=== PATIENT | male | born 2000 | race African-American/Black ===

== ENCOUNTER 2023-01-05 21:30 | Emergency (ER) | payer OTHER, SELFPAY ==
--- NOTE | ~2023-01-05 | XR_ITS ---
EXAMINATION: XR CHEST CLINICAL INFORMATION: Cough. COMPARISON: None available. TECHNIQUE: 2 views of the chest were obtained. FINDINGS: Normal appearance of the cardiomediastinal silhouette. No focal airspace opacity, pleural effusion or pneumothorax. No acute osseous abnormalities. The visualized upper abdomen is within normal limits. XR/XR chest 2V IMPRESSION: No acute cardiopulmonary findings.
[2023-01-05 21:33] VITALS: BP 124/84; PULSE 84; RESP 16; TEMP 36.8; O2SAT 97; BMI 22.9
[2023-01-05 22:23] LABS: COVID-19 Test Negative (Negative); IDNOW Serial# 6674DD1D
[2023-01-05 22:43] LABS: Influenza A PCR NEGATIVE (Negative); Influenza B PCR NEGATIVE (Negative); Resp Syncy Virus RNA Qual PCR NEGATIVE (Negative); SARS COV2 PCR INHOUSE NEGATIVE (Negative)
--- NOTE | 2023-01-05 23:17 | ED_ITS ---
HPI - Asthma General Chief Complaint: Upper Respiratory Symptoms Stated Complaint: Sob/asthma Time Seen by Provider: 01/05/23 23:11 Source: patient Mode of arrival: ambulatory Limitations: no limitations History of Present Illness HPI Narrative: Patient comes emergency room complaining of frequent asthma exacerbations. Patient states that he uses his inhaler, seems to help at the time, but shortly after, he has exacerbations again. Patient denies any fever or chills, no significant coughing. Patient states that the asthma exacerbations started over last 4 days, got worse over last couple of days. Related Data Allergies Allergy/AdvReac Type Severity Reaction Status Date / Time No Known Allergies Allergy Verified 01/05/23 21:40 Review of Systems Review of Systems: Constitutional : No Weight loss, No Fever, No Chills, No Night Sweats, No Fatigue, No Malaise ENT/Mouth : No Hearing loss, No Ear Pain, No Nasal Congestion, No Sinus Pain, No Hoarseness, No sore throat, No Rhinorrhea, No Swallowing Difficulty Eyes: No Eye Pain, No Swelling, No Redness, No Foreign Body, No Discharge, No Vision Changes Cardiovascular : No Chest Pain, No SOB, No Dyspnea on Exertion, No Orthopnea, No Edema, No Palpitations Respiratory : No Cough, No Sputum, complaining of intermittent Wheezing, No Smoke Exposure, No Dyspnea Gastrointestinal : No Nausea, No Vomiting, No Diarrhea, No Constipation, No abdominal Pain, No Hematochezia, No Melena Genitourinary : no irregular bleeding, No Dysuria, No Urinary Frequency, No Hematuria, No Urinary Incontinence, No Urgency, No Flank Pain, No Urinary Flow Changes, No Hesitancy Musculoskeletal : No joint pain, No Myalgias, No Joint Swelling Skin : No Skin Lesions, No rash Neuro : No Weakness, No Numbness, No Paresthesias, No Loss of Consciousness, No Dizziness, No Headache Psych : No Anxiety/Panic, No Depression, No SI/HI/AH/VH, No Social Issues, Heme/Lymph: No Bruising, No Bleeding,No Lymphadenopathy Endocrine : No Polyuria, No Polydipsia, No Temperature Intolerance [facility] Past Medical History Medical History (Updated 01/05/23 @ 23:29 by Marissa Clemente MD) Asthma Physical Exam Vital Signs: Vital Signs: Last Vital Signs Temp 98.3 F 01/05/23 21:33 Pulse 84 01/05/23 21:33 Resp 16 01/05/23 21:33 BP 124/84 01/05/23 21:33 Pulse Ox 97 01/05/23 21:33 O2 Del Method Room Air 01/05/23 21:33 BMI result Body Mass Index 22.9 Const: Other: Appearance: Alert. Oriented X3. No acute distress. Eyes: Pupils equal, round and reactive to light. ENT: Pharynx normal. Neck: Normal inspection. Neck supple. No lymph nodes noted. No crepitus CVS: Normal heart rate and rhythm. Pulses normal. Normal S1 and S2 Respiratory: No respiratory distress. Very mild and occasional wheezing bilaterally good air movement bilaterally Abdomen: Soft and nontender. No rigidity. No distention. Skin: Skin warm and dry. Normal skin color. Normal skin turgor. Extremities: No lower extremity edema. No Lacerations. No Rash Neuro: Oriented X 3. No motor deficit. No sensory deficit. Moving all extremities. No slurred speech. CN 2 through 12 grossly intact Psych: calm, cooperative, normal affect Course Course Course Narrative: -patient will be getting 1 neb treatment and p.o. steroids - Medical Decision Making Medical Decision Making [facility] Narrative: -my interpretation of chest x-ray: No pneumonia, no infiltrates -radiology report of x-ray: No acute cardiopulmonary finding -my interpretation of labs: Patient tested negative for flu, RSV and COVID Differential Diagnosis Differential Diagnoses: The differential diagnosis associated with the presentation includes (Asthma exacerbation, influenza, RSV, COVID) Lab Data [facility] Lab Attestation statement: I reviewed the patient's lab results. Labs: Lab Results 01/05/23 Range/Units 21:56 COVID-19 (JOAN) Negative (Negative) COVID-19 Clin Com See Note Influenza Type A (PCR) NEGATIVE (Negative) Influenza Type B (PCR) NEGATIVE (Negative) RSV RNA Qual (PCR) NEGATIVE (Negative) SARS-CoV-2 RNA (RT-PCR) NEGATIVE (Negative) Independent Interpretation I performed an independent interpretation of an: Plain X-Ray Radiology Impression Discussion of test interpretation with radiology: I have reviewed the radiologist's reading. Radiologist Impression: FINDINGS: Normal appearance of the cardiomediastinal silhouette. No focal airspace opacity, pleural effusion or pneumothorax. No acute osseous abnormalities. The visualized upper abdomen is within normal limits. XR/XR chest 2V IMPRESSION: No acute cardiopulmonary findings. Critical Care Time Critical Care Time Critical Care Time: Yes Total Critical Care Time: 30 Attestation: I have personally provided critical care time. Time includes review of lab data, radiology results, discussion with consultants, and monitoring for potential decompensation. Intervention performed as documented. Discharge Plan Discharge Clinical Impression: Asthma Patient Disposition: Home, Self-Care Instructions: Asthma (ED) Additional Instructions: Please follow-up with your primary care physician tomorrow. If you have any worsening or new symptoms, please return to the emergency room or call 911
[2023-01-05] MEDS: Albuterol Sulfate (0.083%) 2.5 MG/3 ML VIAL.NEB 5 MG INHALE (23:28)
[2023-01-05 23:31] VITALS: PULSE 84; RESP 16; O2SAT 97
[2023-01-06] VITALS: BP 139/79; PULSE 83; RESP 18; O2SAT 94
[2023-01-06] MEDS: predniSONE 20 MG TABLET 60 MG PO (00:11)
== END 2023-01-06 00:07 | disposition home or self-care (01) ==
PROVIDERS: Emergency Provider Emergency Medicine
DX: J45.909 Unspecified asthma, uncomplicated (principal); Z20.822 Contact with and (suspected) exposure to COVID-19; Z20.828 Contact with and (suspected) exposure to other viral communicable diseases
CPT/HCPCS: 0241U; 71046; 87635; 94640; 99284

== ENCOUNTER 2024-12-16 06:21 | Emergency (ER) | payer OTHER, SELFPAY ==
--- NOTE | ~2024-12-16 | XR_ITS ---
CLINICAL HISTORY: sob 2 view chest x-ray Comparison: 01/05/2023 Findings: No consolidation or effusion. Normal size heart. No acute fracture. IMPRESSION: 1. No acute findings. This document has been electronically signed by: Jose Roberto Headley MD on 12/16/2024 07:25:57
[2024-12-16 06:24] VITALS: BP 129/60; PULSE 80; RESP 18; TEMP 37.1; O2SAT 96; BMI 26.8
--- NOTE | 2024-12-16 07:03 | ED_ITS ---
HPI - General Adult General Chief complaint: Dyspnea Stated complaint: SOB Time Seen by Provider: 12/16/24 07:02 Source: patient and family Mode of arrival: ambulatory Limitations: no limitations History of Present Illness ED Provider: KING Mullins HPI narrative: 24-year-old male with medical history of asthma presents to the ED due to shortness of breath and cough that began yesterday. 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 Patient states later in the day began wheezing. Patient states last night he woke up in the middle of the night with shortness of breath, he used rescue inhaler without relief prompting him to seek care in the ED. Patient denies chest pain, headaches, visual changes, nausea, vomiting, abdominal pain MD complaint: SOB Related Data Previous Rx's ?Medication ?Instructions ?Recorded albuterol sulfate 90 mcg/actuation 2 puff inhalation Q 4-6H PRN 01/05/23 aerosol inhaler shortness of breath or wheez ing #8.5 grams prednisone 50 mg tablet 50 mg PO DAILY #4 tabs 01/05 albuterol sulfate 90 mcg/actuation 1 inh inhalation QI D PRN shortness 12/16/24 aerosol inhaler (Ventolin HFA) of breath or wheezing # 6.7 grams Allergies Allergy/AdvReac Type Severity Reaction Status Date / Time peanut Allergy Unknown Verified 12/16/24 06:27 tree nut Allergy Unknown Verified 12/16/24 06:27 Review of Systems 2 Review of Systems: CONST: Negative for fever, body aches and chills. HENT: Negative for neck pain/stiffness, headache, congestion, sore throat, swelling. EYES: Negative for discharge/pain or vision changes. RESP: Negative for hemoptysis. POS dry cough with SOB CV: Negative chest pain, difficulty breathing, palpitations. ABD: Negative pain, nausea, vomiting. : Negative increase frequency, dysuria, blood in urine or stool. MUSC: Negative for muscle aches, edema. SKIN: Negative rash, lesions/sores. NEURO: Negative headache, dizziness, weakness. Yes all other systems are reviewed and are negative PMFSH Past Medical History Attestation statement: The following information was validated with the patient. Source: old records reviewed and nursing notes reviewed Medical History Asthma Social History Social History Alcohol intake: never Advance Directives: No Advance Directives Information Provided: No Physical Exam ED Vital Signs: Vital Signs - 24 hr 12/16/24 06:24 12/16/24 07:22 Temperature 98.8 F Pulse Rate 80 83 Respiratory Rate 18 26 H Blood Pressure 129/60 Pulse Oximetry 96 Oxygen Delivery Method Room Air BMI result Body Mass Index 26.8 GENERAL APPEARANCE: ?AxOx4, generally well-appearing, no acute distress. HEENT: ?NC, AT. MMM. EOMI, clear conjunctiva, oropharynx clear. NECK: ?Supple without lymphadenopathy.? No stiffness or restricted ROM. HEART:? Normal rate and regular rhythm, normal S1/S2, no m/r/g LUNGS:?Mild inspiratory and expiratory wheeze without ronchi or coarse lung sounds ABDOMEN: ?Soft, nontender, nondistended EXTREMITIES: ?Without cyanosis, clubbing or edema. NEUROLOGICAL: ?Grossly nonfocal. Alert and oriented, moving all 4 extremities. Observed to ambulate with normal gait. Skin: ?Warm and dry without any rash. Medications Administered Discontinued Medications Generic Name Dose Route Start Last Admin Trade Name Freq PRN Reason Stop Dose Admin Albuterol Sulfate 5 mg/ 0 mg 12/16/24 07:18 12/16/24 07:20 Albuterol/Ipratropium 3 ml INHALE 12/16/24 07:19 1 each ONCE ONE Administration Magnesium Sulfate 2 gm in 50 mls @ 150 mls/hr 12/16/24 07:19 12/16/24 07:28 Magnesium Sulfate/H2o IV 12/16/24 07:38 150 mls/hr ONCE ONE Administration Methylprednisolone Sodium Succinate 60 mg 12/16/24 07:19 12/16/24 07:28 Methylprednisolone Sod Succ 125 Mg/2 Ml Vial IVPUSH 12/16/24 07:20 60 mg ONCE ONE Administration Medical Decision Making Medical Decision Making MDM Narrative: 24-year-old male with medical history of asthma presents to the ED due to shortness of breath and cough that began yesterday after painting a car with an airbrush system and developing cough and wheezing after the job, with SOB worsening overnight. Has used rescue inhaler at home without relief. VS on initial exam-BP 129/60, pulse rate of 83, respiratory rate of 26, afebrile with oral temp of 98.8?, O2 saturation 96% on room air. On initial exam lungs with mild inspiratory/expiratory wheeze without rhonchi or coarse lung sounds, no increased work of breathing, no pursed lip breathing, no accessory muscle use noted. Plan: Labs, CXR, bronch protocol Labs without leukocytosis/leukopenia, H&H stable, mild transaminitis with an AST of 130, ALT of 51, no electrolyte abnormality. CXR negative for acute cardiopulmonary processes Patient received bronchodilator protocol, 2g magnesium, and 60mg IV solumedrol for SOB and wheezing. After medication and 5 mg Ventolin patient's shortness of breath has improved considerably, symptoms are most likely due to asthma exacerbation after exposure to broncho-irritating substance after inhaling aerosol paint, patient without headache, visual changes, nausea, vomiting, or altered mental status. Patient without pleuritic chest pain, tachycardia, tachypnea has resolved after recieving Ventolin, Wells score of 0- low suspicion for PE. On re-exam mild inspiratory and expiratory wheeze is no longer present, patient is moving air well, lungs clear to auscultation bilaterally. I ambulated the patient around the room with pulse ox on, without hypoxia, patient was saturating between 97-99% with ambulation. Patient feels better to go home for self care. Patient is requesting albuterol inhaler as he used the rest of his inhaler. I counseled patient to follow up with his PCP and on strict return precautions. Patient is in agreement with the plan. Differential Diagnosis Differential Diagnoses: The differential diagnosis associated with the presentation includes Pneumothorax PE Pulmonary edema Asthma exacerbation Admission/Observation Consideration of admission/observation: Escalation of care including admission/observation considered I considered admission, however patient symptoms improved considerably after Ventolin treatment, Solu-Medrol, and magnesium. Patient without hypoxia, no hypoxia on ambulation. Does not need admission at this time Lab Data MDM Lab Attestation statement: I reviewed the patient's lab results. 12/16/24 07:25 12/16/24 07:25 Labs: Lab Results 12/16/24 Range/Units 07:25 WBC 6.7 (4.8-10.8) X10*3/uL RBC 5.23 (4.60-5.80) X10*6/uL Hgb 15.0 (14.0-18.0) g/dl Hct 43.9 (42.0-52.0) % MCV 83.9 (80.0-98.0) fL MCH 28.7 (27.0-33.0) pg MCHC 34.2 (31.0-36.0) g/dl RDW 12.8 (11.0-16.0) % Plt Count 162 (160-400) X10*3/uL MPV 10.8 (9.4-12.4) fL Immature Gran % (Auto) 0.3 (0.0-0.4) % Neut % (Auto) 54.9 (45-73) % Lymph % (Auto) 30.1 (20-40) % Buchanan % (Auto) 6.5 (2-11) % Eos % (Auto) 7.6 H (0-4) % Baso % (Auto) 0.6 (0-2) % Lymph # (Auto) 2.0 (1.2-4.9) X10*3/uL Buchanan # (Auto) 0.4 (0.1-1.2) X10*3/uL Eos # (Auto) 0.5 H (0.0-0.4) X10*3/uL Baso # (Auto) 0.0 (0.0-0.2) X10*3/uL Abs Immat Gran (auto) 0.02 (0.00-0.03) X10*3/uL Absolute Neuts (auto) 3.7 (2.0-8.3) x10*3/uL Absolute Nucleated RBC 0.000 (0.0-0.012) X10*3/uL Nucleated RBC % (auto) 0.0 (0.0-0.2) /100WBC Sodium 142 (135-145) mmol/L Potassium 3.5 (3.3-5.1) mmol/L Chloride 108 (96-108) mmol/L Carbon Dioxide 27 (22-29) mmol/L Anion Gap 11 L (12-20) BUN 13 (9-16) mg/dL Creatinine 1.07 (0.5-1.4) mg/dL Estim Creat Clear Calc 109.9 Estimated GFR > 60 Random Glucose 97 (60-115) mg/dL Calcium 9.3 (8.4-10.2) mg/dL Total Bilirubin 0.7 (0.0-1.0) mg/dL AST 130 H (5-37) U/L ALT 51 H (0-40) U/L Alkaline Phosphatase 62 (39-117) U/L Total Protein 7.2 (6.5-8.0) g/dL Albumin 4.7 (3.5-5.0) g/dL Independent Interpretation I performed an independent interpretation of an: Plain X-Ray Interpretation: I personally interpreted the CXR which was negative for pneumothorax, pulmonary edema, infiltrates, consolidations, I agree with the radiologist's interpretation Radiology Impression Discussion of test interpretation with radiology: I have reviewed the radiologist's reading. Radiologist Impression: CXR Findings: No consolidation or effusion. Normal size heart. No acute fracture. IMPRESSION: 1. No acute findings. This document has been electronically signed by: Jose Roberto Headley MD on 12/16/2024 07:25:57 Dictated By: Jose Roberto Headley MD Signed By: <Electronically signed by Jose Roberto Headley MD in OV> 12/16/24 0727 Independent Historian Clinical information obtained from an independent historian. History obtained from or confirmed by: Spouse (Significant other at bedside corroborating history) External Record Review External record reviewed: Inpatient record, Office record and Outpatient record Chronic Conditions Patient?s care impacted by: Other (Asthma) Discharge Plan Discharge Clinical Impression: Asthma with exacerbation Patient Disposition: Home, Self-Care Additional Instructions: You were evaluated in the ED due to shortness of breath and cough after being exposed and inhaling aerosol paint. You were medicated with 2 g IV magnesium, 16 mg IV methylprednisolone, and 5 mg Ventolin breathing treatment with respiratory therapy with significant resolution of your symptoms. Your physical exam was reassuring as after you received treatment the expiratory wheeze that was heard on lung exam had resolved. You are being prescribed albuterol sulfate inhaler that you can use at home for symptoms. I encourage you to follow up with your primary care doctor to ensure resolution of your symptoms. Please return to the emergency department if you experience fevers over 100.4?, increased coughing, increased shortness of breath, nausea, vomiting, headaches, visual changes, confusion, chest pain, or any new/worsening/concerning symptoms. Prescriptions: New albuterol sulfate [Ventolin HFA] 90 mcg/actuation HFA aerosol inhaler 1 inh inhalation QID PRN (Reason: shortness of breath or wheezing) Qty: 6.7 0RF No Action albuterol sulfate 90 mcg/actuation HFA aerosol inhaler 2 puff inhalation Q4-6H PRN (Reason: shortness of breath or wheezing) Qty: 8.5 0RF prednisone 50 mg tablet 50 mg PO DAILY Qty: 4 0RF Print Language: Cambodian
[2024-12-16] MEDS: Albuterol Sulfate 5 MG, Albuterol/Iprat 2.5/0.5MG 3 ML 3 ML INHALE (07:20)
[2024-12-16 07:22] VITALS: PULSE 83; RESP 26; O2SAT 99
[2024-12-16] MEDS: Magnesium Sulfate/H2O 2 GM/50 ML PIGGYBACK IV (07:28)
[2024-12-16 07:29] LABS: MANUAL DIFF FLAG NO
[2024-12-16 07:32] LABS: Hematocrit 43.9 % (42.0-52.0); Hemoglobin 15.0 g/dl (14.0-18.0); Imm Gran Abs Auto 0.02 X10*3/uL (0.00-0.03); Imm Gran Pct Auto 0.3 % (0.0-0.4); Lymphocytes Absolute Auto 2.0 X10*3/uL (1.2-4.9); Mean Corpuscular HGB Conc 34.2 g/dl (31.0-36.0); Mean Corpuscular Hemoglobin 28.7 pg (27.0-33.0); Mean Corpuscular Volume 83.9 fL (80.0-98.0); NRBC Abs Auto 0.000 X10*3/uL (0.0-0.012); NRBC Pct Auto 0.0 /100WBC (0.0-0.2); Platelet Count 162 X10*3/uL (160-400); Red Blood Count 5.23 X10*6/uL (4.60-5.80); White Blood Count 6.7 X10*3/uL (4.8-10.8)
[2024-12-16 07:50] LABS: Alanine Aminotransferase 51 U/L (0-40); Albumin Level 4.7 g/dL (3.5-5.0); Alkaline Phosphatase 62 U/L (39-117); Anion Gap 11 (12-20); Aspartate Amino Transferase 130 U/L (5-37); Blood Urea Nitrogen 13 mg/dL (9-16); Calcium 9.3 mg/dL (8.4-10.2); Carbon Dioxide 27 mmol/L (22-29); Chloride 108 mmol/L (96-108); Creatinine Clr Calc Pharmacy 109.9; Estimated Glomerular Filt Rate > 60; Potassium 3.5 mmol/L (3.3-5.1); Sodium 142 mmol/L (135-145); Total Protein 7.2 g/dL (6.5-8.0)
[2024-12-16 08:55] VITALS: BP 120/59; PULSE 86; RESP 16; TEMP 36.8; O2SAT 97
== END 2024-12-16 08:56 | disposition home or self-care (01) ==
PROVIDERS: Emergency Provider Emergency Medicine
DX: J45.901 Unspecified asthma with (acute) exacerbation (principal)
CPT/HCPCS: 36415; 71046; 80053; 85025; 94640; 96365; 96375; 99283; 99284; J2919; J3475

== ENCOUNTER → 2024-12-16 06:40 | Outpatient (BNV) | payer OTHER, SELFPAY | PROVIDERS: Emergency Provider Emergency Medicine; Visit Provider Specialist | DX: R06.02 Shortness of breath (principal) | CPT/HCPCS: 71046 ==

== ENCOUNTER 2024-12-16 22:23 | Inpatient (IN) | payer SELFPAY ==
[2024-12-16 22:26] VITALS: BP 144/67; PULSE 113; RESP 16; TEMP 36.7; O2SAT 94; BMI 27.6
[2024-12-16 23:06] LABS: IDNOW Serial# 55D5AD1C
[2024-12-16 23:07] LABS: COVID-19 Test Negative (Negative); IDNOW Serial# 58CA691E; Influenza B2 Negative (Negative)
--- NOTE | 2024-12-16 23:36 | ED.ASTHMA ---
HPI - Asthma General Chief Complaint: Asthma Stated Complaint: here yesterday, was told to return if SOB Time Seen by Provider: 12/16/24 23:36 Source: patient Mode of arrival: ambulatory Limitations: no limitations History of Present Illness ED Provider: RIO MARTÍNEZ PA-C HPI Narrative: 24 year old male with pmhx significant for asthma presents to the ED today for evaluation of shortness of breath, wheezing and chest tightness that began around 1300 today. Patient was seen at our facility early this morning for same which began after painting a car with an airbrush. He was treated with IV medications and discharged home with albuterol nebulizer for asthma exacerbation. He was not discharged on any steroids. He reports feeling well on discharge hand throughout the morning. Upon returning to work he began to feel wheezy with associated chest tightness, palpitations and shortness of breath. Also endorsing cough productive of yellow sputum. He returned home to use his nebulizer without improvement in symptoms. Denies fever, chills, N/V, LE pain/swelling, hemoptysis. Related Data Previous Rx's ?Medication ?Instructions ?Recorded albuterol sulfate 90 mcg/actuation 2 puff inhalation Q4-6H PRN 01/05/23 aerosol inhaler shortness of breath or wheezing #8.5 grams prednisone 50 mg tablet 50 mg PO DAILY #4 tabs 01/05/23 albuterol sulfate 90 mcg/actuation 1 inh inhalation QID PRN shortness 12/16/24 aerosol inhaler (Ventolin HFA) of breath or wheezing #6.7 grams Allergies Allergy/AdvReac Type Severity Reaction Status Date / Time peanut Allergy Unknown Verified 12/16/24 22:29 tree nut Allergy Unknown Verified 12/16/24 22:29 Review of Systems Review of Systems: Yes all other systems are reviewed and are negative PMFSH Past Medical History Attestation statement: The following information was validated with the patient. Source: old records reviewed and nursing notes reviewed Medical History Asthma Social History Social History Alcohol intake: current Alcohol intake frequency: holidays/special occasions only Smoked in Last 30 Days: No Use of substances other than those prescribed or required for medical reasons: No Substance Use Type: Former Substance User and Marijuana Advance Directives: No Advance Directives Information Provided: Yes Do you have a plan to hurt others: No Plan Physical Exam Vital Signs: Vital Signs: Last Vital Signs Temp 98.1 F 12/16/24 22:26 Pulse 72 12/17/24 00:20 Resp 16 12/16/24 22:26 BP 144/67 H 12/16/24 22:26 Pulse Ox 94 12/16/24 22:26 O2 Del Method Room Air 12/16/24 22:26 BMI result Body Mass Index 27.6 Hypertensive, tachycardic, satting 94% on room air General: Well appearing, in no acute distress. Skin: Warm, dry, intact. No rashes or lesions. Head: Normocephalic, atraumatic. EENT: Hearing is intact b/l. Conjunctiva clear. PERRLA. EOM intact. Moist mucous membranes.? Neck: Supple without LAD Cardiac: Chest wall symmetric. RRR Lungs: Normal respiratory effort without accessory muscle use, no tripoding, inspiratory and expiratory wheezes throughout lung rivera Abdomen: Soft, non-tender, non-distended Ext: Upper and lower extremities atraumatic, without tenderness, deformity, swelling or erythema Neuro: AOx3. Normal speech. Ambulating with steady gait. Course Course Course Narrative: CBC without leukocytosis or left shift. No anemia. H&H stable. Chemistry without acute electrolyte abnormality requiring intervention. No RACHEL. Liver function at baseline. Troponin undetectable. Negative COVID, flu. Chest x-ray obtained less than 24 hours ago does not demonstrate infiltrate or consolidation > treated with IV Solu-Medrol, magnesium and albuterol tx > ambulatory O2 trial performed. Patient noted to desat from 97% on room air at rest to 90% during ambulation. Did not endorse feeling short of breath however reported continued chest tightness. Will add on ddimer to r/o PE although unlikely. Concern for asthma exacerbation. Given patient is a bounce back, I anticipate admission to medicine. 0157 -- ddimer <150, PE unlikely. will reach out to hospitalist regarding admission. patient agreeable. Medications Administered Discontinued Medications Generic Name Dose Route Start Last Admin Trade Name Freq PRN Reason Stop Dose Admin Albuterol Sulfate 2.5 mg/ 0 mg 12/17/24 00:15 12/17/24 00:18 Albuterol/Ipratropium 3 ml INHALE 12/17/24 00:16 1 dose ONCE ONE Administration Magnesium Sulfate 2 gm in 50 mls @ 150 mls/hr 12/17/24 00:34 12/17/24 02:03 Magnesium Sulfate/H2o IV 12/17/24 00:53 150 mls/hr ONCE ONE Administration Methylprednisolone Sodium Succinate 60 mg 12/16/24 23:41 12/17/24 00:07 Methylprednisolone Sod Succ 125 Mg/2 Ml Vial IVPUSH 12/16/24 23:42 60 mg ONCE ONE Administration Medical Decision Making Medical Decision Making [facility] Narrative: 24 year old male with past medical history significant for asthma presents to the ED today for evaluation of shortness of breath, wheezing and chest tightness that began around 1300 today. patient is hypertensive and tachycardic. No increased effort of breathing, no tripoding. bronchospastic cough. Patient has diffuse inspiratory and expiratory wheezes. Differential diagnosis includes viral syndrome, bronchitis, pneumonia, asthma exacerbation Plan for labs, ekg, viral swabs, ED bronch protocol, solumedrol + mag, ambulatory O2 trial Differential Diagnosis Differential Diagnoses: The differential diagnosis associated with the presentation includes As above Admission/Observation Consideration of admission/observation: Escalation of care including admission/observation considered patient admitted to medicine for acute asthma exacerbation Consult Healthcare Provider Management of the patient was discussed with: Hospitalist (dr. clarke) Lab Data [facility] Lab Attestation statement: I reviewed the patient's lab results. as above. 12/17/24 00:03 12/17/24 00:03 Labs: Lab Results 12/16/24 12/17/24 12/17/24 Range/Units 22:40 00:03 01:29 WBC 7.9 (4.8-10.8) X10*3/uL RBC 5.15 (4.60-5.80) X10*6/uL Hgb 14.7 (14.0-18.0) g/dl Hct 42.6 (42.0-52.0) % MCV 82.7 (80.0-98.0) fL MCH 28.5 (27.0-33.0) pg MCHC 34.5 (31.0-36.0) g/dl RDW 13.1 (11.0-16.0) % Plt Count 184 (160-400) X10*3/uL MPV 11.0 (9.4-12.4) fL Immature Gran % (Auto) 0.3 (0.0-0.4) % Neut % (Auto) 72.4 (45-73) % Lymph % (Auto) 16.6 L (20-40) % [place] % (Auto) 9.9 (2-11) % Eos % (Auto) 0.5 (0-4) % Baso % (Auto) 0.3 (0-2) % Lymph # (Auto) 1.3 (1.2-4.9) X10*3/uL [place] # (Auto) 0.8 (0.1-1.2) X10*3/uL Eos # (Auto) 0.0 (0.0-0.4) X10*3/uL Baso # (Auto) 0.0 (0.0-0.2) X10*3/uL Abs Immat Gran (auto) 0.02 (0.00-0.03) X10*3/uL Absolute Neuts (auto) 5.8 (2.0-8.3) x10*3/uL Absolute Nucleated RBC 0.000 (0.0-0.012) X10*3/uL Nucleated RBC % (auto) 0.0 (0.0-0.2) /100WBC D-Dimer High Sensitivty < 150 NG/ML Sodium 143 (135-145) mmol/L Potassium 3.4 (3.3-5.1) mmol/L Chloride 105 (96-108) mmol/L Carbon Dioxide 25 (22-29) mmol/L Anion Gap 16 (12-20) BUN 12 (9-16) mg/dL Creatinine 0.99 (0.5-1.4) mg/dL Estim Creat Clear Calc 118.7 Estimated GFR > 60 Random Glucose 114 (60-115) mg/dL Calcium 9.5 (8.4-10.2) mg/dL Magnesium 2.1 (1.6-2.6) mg/dL Total Bilirubin 0.4 (0.0-1.0) mg/dL AST 103 H (5-37) U/L ALT 52 H (0-40) U/L Alkaline Phosphatase 62 (39-117) U/L Troponin I High Sens < 2.7 (<3.5-35.0) ng/L Total Protein 7.6 (6.5-8.0) g/dL Albumin 4.9 (3.5-5.0) g/dL COVID-19 (JOAN) Negative (Negative) COVID-19 Clin Com See Note Influenza Type A (IVAN) Negative (Negative) Influenza Type B (IVAN) Negative (Negative) Influenza A & B Note See Note Independent Interpretation I performed an independent interpretation of an: EKG and Plain X-Ray Interpretation: ekg showing NSR with sinus arrythmia, rate of 75 bpm, no acute icschemic changes, t wave inversion to lead 3 only, no priors to compare to cxr without infiltrate or consolidation Radiology Impression Discussion of test interpretation with radiology: I have reviewed the radiologist's reading. Radiologist Impression: Date of Service: 12/16/24 Procedure(s): XR chest 2V Accession Number(s): [id number] cc: Irma Walker MD; Physician,Unknown ~ Reason for Exam: sob CLINICAL HISTORY: sob 2 view chest x-ray Comparison: 01/05/2023 Findings: No consolidation or effusion. Normal size heart. No acute fracture. IMPRESSION: 1. No acute findings. This document has been electronically signed by: Jose Roberto Headley MD on 12/16/2024 07:25:57 External Record Review External record reviewed: Inpatient record Chronic Conditions Patient?s care impacted by: Other (asthma) Social Determinants Patient?s care significantly limited by Social Determinants of Health including: Other Social Determinant of Health Critical Care Time Critical Care Time Critical Care Time: Yes Total Critical Care Time: 32 Attestation: Critical care time in the amount of 22 minutes has been provided to the patient in terms of direct patient care, frequent reevaluation, consultation with hospitalist, review and interpretation of medical data and results, and management of potentially life-threatening conditions. This is all outside of any medical procedures. Discharge Plan Discharge Clinical Impression: Asthma with acute exacerbation Patient Disposition: Admitted As Inpatient
--- NOTE | 2024-12-16 23:40 | ECG_ITS ---
Test Reason : SOB Blood Pressure : */* mmHG Vent. Rate : 75 BPM Atrial Rate : 75 BPM P-R Int : 168 ms QRS Dur : 100 ms QT Int : 376 ms P-R-T Axes : 78 64 16 degrees QTcB Int : 419 ms Normal sinus rhythm with sinus arrhythmia Normal ECG No previous ECGs available Referred By: Tracy Recinos Electronically Signed By: SEBASTIAN GOMEZ
[2024-12-17] VITALS (11 sets, daily range): BP systolic 115–133; BP diastolic 55–72; PULSE 72–112; RESP 14–24; O2SAT 90–99; BMI 27.9
[2024-12-17 00:10] LABS: MANUAL DIFF FLAG NO
[2024-12-17 00:14] LABS: Hematocrit 42.6 % (42.0-52.0); Hemoglobin 14.7 g/dl (14.0-18.0); Imm Gran Abs Auto 0.02 X10*3/uL (0.00-0.03); Imm Gran Pct Auto 0.3 % (0.0-0.4); Lymphocytes Absolute Auto 1.3 X10*3/uL (1.2-4.9); Mean Corpuscular HGB Conc 34.5 g/dl (31.0-36.0); Mean Corpuscular Hemoglobin 28.5 pg (27.0-33.0); Mean Corpuscular Volume 82.7 fL (80.0-98.0); NRBC Abs Auto 0.000 X10*3/uL (0.0-0.012); NRBC Pct Auto 0.0 /100WBC (0.0-0.2); Platelet Count 184 X10*3/uL (160-400); Red Blood Count 5.15 X10*6/uL (4.60-5.80); White Blood Count 7.9 X10*3/uL (4.8-10.8)
--- NOTE | 2024-12-17 00:16 | PC.NURSE ---
Iv placed, medicated per mar, respiratory in to do a breathing treatment.
[2024-12-17] MEDS: Albuterol Sulfate 2.5 MG, Albuterol/Iprat 2.5/0.5MG 3 ML 3 ML INHALE (00:18)
--- NOTE | 2024-12-17 00:22 | PC.NURSE ---
pt able to speaking in full sentence, no retractions.
[2024-12-17 00:28] LABS: Alanine Aminotransferase 52 U/L (0-40); Albumin Level 4.9 g/dL (3.5-5.0); Alkaline Phosphatase 62 U/L (39-117); Anion Gap 16 (12-20); Aspartate Amino Transferase 103 U/L (5-37); Blood Urea Nitrogen 12 mg/dL (9-16); Calcium 9.5 mg/dL (8.4-10.2); Carbon Dioxide 25 mmol/L (22-29); Chloride 105 mmol/L (96-108); Creatinine Clr Calc Pharmacy 118.7; Estimated Glomerular Filt Rate > 60; Magnesium 2.1 mg/dL (1.6-2.6); Potassium 3.4 mmol/L (3.3-5.1); Sodium 143 mmol/L (135-145); Total Protein 7.6 g/dL (6.5-8.0)
[2024-12-17 00:33] LABS: Troponin-I High Sensitivity < 2.7 ng/L (<3.5-35.0)
[2024-12-17 01:52] LABS: D Dimer High Sensitivity < 150 NG/ML
[2024-12-17] MEDS: Magnesium Sulfate/H2O 2 GM/50 ML PIGGYBACK IV (02:03)
--- NOTE | 2024-12-17 02:05 | PC.NURSE ---
medicated per mar, breathing treatment completed, walk test completed, provider aware of results.
--- NOTE | 2024-12-17 02:06 | P.HPHOSP_ITS ---
History of Present Illness Date of Service: 12/17/24 Attending physician on admission: Papo Kenny Chief Complaint: Shortness of breath Jv Hyatt Jr is a 24 years old man with past medical history significant for asthma on rescue inhaler only presents to the ED for the 2nd time complaining of worsening shortness on breath, wheezing, chest tightness and dry cough. 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 Patient stated that over the last couple of weeks he has been using his inhaler daily which he attributes to the weather change. He denied fever or chills. He did not report headache, palpitations or dizziness. He did not report any acute gastrointestinal or genitourinary symptoms. He denied tobacco or marijuana smoking or vaping. In the ED, he was found to have stable vital signs. There is mild tachycardia. There is no fever. CBC is unremarkable. There are no electrolyte imbalances and renal function is normal. AST is 103 and ALT is 52. Bilirubin and alk-phos are normal. Troponin < 2.7. CXR is negative. ECG showed normal sinus rhythm with sinus arrhythmia and no ischemic changes. Viral testing for COVID-19 and influenza are negative. ED tx: Solu-Medrol 60 mg IV, magnesium 2 mg IV, albuterol 2.5 mg/ipratropium 3 mg Review of Systems 2 Review of Systems: All 12 systems were reviewed and normal except as noted in HPI. COUNT INCLUDES THE [facility] Medical History Asthma Social History Alcohol intake: current Alcohol intake frequency: holidays/special occasions only Smoked in Last 30 Days: No Use of substances other than those prescribed or required for medical reasons: No Substance Use Type: Former Substance User and Marijuana Advance Directives: No Advance Directives Information Provided: Yes Do you have a plan to hurt others: No Plan Meds Allergies Allergy/AdvReac Type Severity Reaction Status Date / Time peanut Allergy Unknown Verified 12/16/24 22:29 tree nut Allergy Unknown Verified 12/16/24 22:29 Active Medications: Current Medications Acetaminophen (Acetaminophen 325 Mg Tablet) 650 mg PO Q6H PRN PRN Reason: Pain, Mild 1-3,fever,headache Albuterol Sulfate (Albuterol Sulfate (0.083%) 2.5 Mg/3 Ml Vial.Neb) 2.5 mg INHALE Q2H PRN PRN Reason: Shortness of Breath/Wheezing Albuterol/Ipratropium (Albuterol/Iprat 2.5/0.5mg 3 Ml Ampul.Neb) 3 ml INHALE RQ4H WHILE AWAKE [facility] Calcium Carbonate (Calcium Carbonate 750 Mg Tab.Chew) 750 mg PO Q4H PRN PRN Reason: Heartburn Enoxaparin Sodium (Enoxaparin Sodium 40 Mg/0.4 Ml Syringe) 40 mg SUBCUT Q24H [facility] Magnesium Hydroxide (Milk Of Magnesia 30 Ml Oral.Susp) 30 ml PO DAILY PRN PRN Reason: Constipation Melatonin (Melatonin 3 Mg Tablet) 6 mg PO BEDTIME PRN PRN Reason: Insomnia Sodium Chloride (0.9 % Sodium Chloride Flush 3 Ml Syringe) 3 ml IVFLUSH QSHIFT [facility] Physical Exam 2 Vital Signs and Narrative: Vital Signs: Last Vital Signs Temp 98.1 F 12/16/24 22:26 Pulse 72 12/17/24 00:20 Resp 16 12/16/24 22:26 BP 144/67 H 12/16/24 22:26 Pulse Ox 94 12/16/24 22:26 O2 Del Method Room Air 12/16/24 22:26 BMI result Body Mass Index 27.6 Constitutional - Awake and Alert, No apparent distress HEENT - PER, EOMI Heart - S1S2, RRR, No edema Lungs - Normal lung expansion, Normal respiratory effort, No respiratory distress. Tachypnea. Mild expiratory wheezes. No use of accessory muscles. Abdomen - NT / ND; +BS; No rebound or guarding Extremities - no calf tenderness bilaterally, no swelling Musculoskeletal - Normal inspection, normal ROM Skin - Warm/Dry Neurological - Alert & oriented x3. Moving all extremities spontaneously. Psychological - Appropriate affect Results Labs 12/17/24 00:03 12/17/24 00:03 Labs: Laboratory Results - last 24 hr 12/16/24 12/17/24 12/17/24 22:40 00:03 01:29 MCV 82.7 MCH 28.5 MCHC 34.5 RDW 13.1 Plt Count 184 MPV 11.0 Immature Gran % (Auto) 0.3 Neut % (Auto) 72.4 Lymph % (Auto) 16.6 L [place] % (Auto) 9.9 Eos % (Auto) 0.5 Baso % (Auto) 0.3 Lymph # (Auto) 1.3 [place] # (Auto) 0.8 Eos # (Auto) 0.0 Baso # (Auto) 0.0 Abs Immat Gran (auto) 0.02 Absolute Neuts (auto) 5.8 Absolute Nucleated RBC 0.000 Nucleated RBC % (auto) 0.0 D-Dimer High Sensitivty < 150 Anion Gap 16 Estim Creat Clear Calc 118.7 Estimated GFR > 60 Random Glucose 114 Calcium 9.5 Magnesium 2.1 Total Bilirubin 0.4 AST 103 H ALT 52 H Alkaline Phosphatase 62 Troponin I High Sens < 2.7 Total Protein 7.6 Albumin 4.9 COVID-19 (JOAN) Negative COVID-19 Clin Com See Note Influenza Type A (IVAN) Negative Influenza Type B (IVAN) Negative Influenza A & B Note See Note Assessment and Plan (1) Asthma with acute exacerbation: Qualifiers: Asthma severity: severe Asthma persistence: persistent Qualified Code(s): J45.51 - Severe persistent asthma with (acute) exacerbation Status: Acute (2) Transaminitis: Status: Acute Plan Jv Hyatt Jr is a 24 y/o man who presents to ED with: Acute asthma exacerbation, multiple visits to the ED today; moderate persistent. Telemetry. Pulse oximetry. Supplemental O2 to keep O2 sats > 94%. Continue bronchodilator therapy and IV steroids. Will consider treatment with magnesium sulfate IV if poor response to bronchodilators and steroids. Consider ICS/LABA for maintenance. Elevated LFTs. AST/ALT 2:1 ratio. Unclear etiology. Patient denied alcohol abuse. No GI symptoms. Check hepatitis panel, GGT and total CK. Continue to monitor. Code status: Full DVT prophylaxis: Lovenox Patient will need hospitalization for at least 2 midnights for severe acute asthma exacerbation; patient presents to the emergency department twice today for recurrent symptoms and will need continuous bronchodilator therapy, IV steroids and oxygen as needed Quality Stroke Does the patient have a stroke diagnosis?: No VTE Prior VTE?: No VTE Risk Level:: Medical - moderate - high VTE Device Contraindication: Treatment Not Indicated VTE Drug Contraindication: N/A - Med Ordered
[2024-12-17 02:58] LABS: Gamma Glutamyl Transpeptidase 58 U/L (11-51)
--- NOTE | 2024-12-17 03:52 | PC.NURSE ---
pt requesting breathing treatment, Notified respiratory.
[2024-12-17] MEDS: Albuterol Sulfate (0.083%) 2.5 MG/3 ML VIAL.NEB INHALE ×2 (04:03→23:19)
--- NOTE | 2024-12-17 04:13 | PC.NURSE ---
breathing treatment given and tolerated well.
--- NOTE | 2024-12-17 05:50 | PC.NURSE ---
medicated per mar.
--- NOTE | 2024-12-17 07:11 | P.PNIM_ITS ---
Subjective Subjective Date of Service: 12/17/24 Interval History: still sob, O2 on low lissa Physical Exam 2 Exam: Exam: No distress Vital Signs: Vital Signs: Last Vital Signs Temp 98.1 F 12/16/24 22:26 Pulse 90 12/17/24 04:03 Resp 20 12/17/24 04:03 BP 115/70 12/17/24 03:22 Pulse Ox 90 L 12/17/24 04:11 O2 Del Method Room Air 12/17/24 03:22 BMI result Body Mass Index 27.6 Objective Data Active Medications Acetaminophen (Acetaminophen 325 Mg Tablet) 650 mg PO Q6H PRN PRN Reason: Pain, Mild 1-3,fever,headache Albuterol Sulfate (Albuterol Sulfate (0.083%) 2.5 Mg/3 Ml Vial.Neb) 2.5 mg INHALE Q2H PRN PRN Reason: Shortness of Breath/Wheezing Last Admin: 12/17/24 04:03 Dose: 2.5 mg Documented By: DEBORA Albuterol/Ipratropium (Albuterol/Iprat 2.5/0.5mg 3 Ml Ampul.Neb) 3 ml INHALE RQ4H WHILE AWAKE [facility] Calcium Carbonate (Calcium Carbonate 750 Mg Tab.Chew) 750 mg PO Q4H PRN PRN Reason: Heartburn Enoxaparin Sodium (Enoxaparin Sodium 40 Mg/0.4 Ml Syringe) 40 mg SUBCUT Q24H [facility] Guaifenesin/Codeine Phosphate (Guaifen/Codeine Sf 200/20/10ml 10 Ml Liquid) 10 ml PO Q4H PRN PRN Reason: Cough Magnesium Hydroxide (Milk Of Magnesia 30 Ml Oral.Susp) 30 ml PO DAILY PRN PRN Reason: Constipation Melatonin (Melatonin 3 Mg Tablet) 6 mg PO BEDTIME PRN PRN Reason: Insomnia Methylprednisolone Sodium Succinate (Methylprednisolone Sod Succ 40 Mg/Ml Vial) 40 mg IVPUSH Q8H [facility] Last Admin: 12/17/24 05:48 Dose: 40 mg Documented By: BIANKA Sodium Chloride (0.9 % Sodium Chloride Flush 3 Ml Syringe) 3 ml IVFLUSH QSHIFT [facility] Labs 12/17/24 00:03 12/17/24 00:03 Labs: Laboratory Results - last 24 hr 12/16/24 12/17/24 12/17/24 22:40 00:03 01:29 MCV 82.7 MCH 28.5 MCHC 34.5 RDW 13.1 Plt Count 184 MPV 11.0 Immature Gran % (Auto) 0.3 Neut % (Auto) 72.4 Lymph % (Auto) 16.6 L [place] % (Auto) 9.9 Eos % (Auto) 0.5 Baso % (Auto) 0.3 Lymph # (Auto) 1.3 [place] # (Auto) 0.8 Eos # (Auto) 0.0 Baso # (Auto) 0.0 Abs Immat Gran (auto) 0.02 Absolute Neuts (auto) 5.8 Absolute Nucleated RBC 0.000 Nucleated RBC % (auto) 0.0 D-Dimer High Sensitivty < 150 Anion Gap 16 Estim Creat Clear Calc 118.7 Estimated GFR > 60 Random Glucose 114 Calcium 9.5 Magnesium 2.1 Total Bilirubin 0.4 GGT 58 H AST 103 H ALT 52 H Alkaline Phosphatase 62 Total Creatine Kinase 5502 H Troponin I High Sens < 2.7 Total Protein 7.6 Albumin 4.9 COVID-19 (JOAN) Negative COVID-19 Clin Com See Note Influenza Type A (IVAN) Negative Influenza Type B (IVAN) Negative Influenza A & B Note See Note Assessment and Plan (1) Asthma with acute exacerbation: Status: Acute Plan 24/m with asthma here with exacerbation Acute asthma exacerbation, multiple visits to the ED today; moderate persistent. Telemetry. Pulse oximetry. Supplemental O2 to keep O2 sats > 94%. Continue bronchodilator therapy and IV steroids. Will consider treatment with magnesium sulfate IV if poor response to bronchodilators and steroids. Consider ICS/LABA for maintenance. Continue present care, reassess in am Elevated LFTs. AST/ALT 2:1 ratio. Unclear etiology. Patient denied alcohol abuse. No GI symptoms. Check hepatitis panel, GGT and total CK. Continue to monitor. Code status: Full DVT prophylaxis: Lovenox Patient will need hospitalization for at least 2 midnights for severe acute asthma exacerbation; patient presents to the emergency department twice today for recurrent symptoms and will need continuous bronchodilator therapy, IV steroids and oxygen as needed Quality Stroke Does the patient have a stroke diagnosis?: No VTE Prior VTE?: No VTE Risk Level:: Medical - moderate - high VTE Device Contraindication: Treatment Not Indicated VTE Drug Contraindication: N/A - Med Ordered
[2024-12-17] MEDS: Albuterol/Iprat 2.5/0.5MG 3 ML AMPUL.NEB INHALE ×4 (07:41→19:17)
[2024-12-17] MEDS: 0.9 % Sodium Chloride Flush 3 ML SYRINGE IVFLUSH ×2 (08:26→22:01)
--- NOTE | 2024-12-17 08:44 | PHA.MEDREC ---
Addendum entered by Stanislaw Rodgers RPh 12/17/24 10:26: MED REC REVIEWED BY [facility] Original Note: Pharmacy Consult ? Medication Reconciliation Pharmacy has completed the medication reconciliation. Spoke with pt and he confirmed his medications.
--- NOTE | 2024-12-17 09:01 | PC.NURSE ---
Pt refusing blood work, states he has been poked too many times, says he will reconsider later. aware.
--- NOTE | 2024-12-17 14:40 | MHC.CM.PN ---
PT REPORTS HE LIVES WITH S/O AND IS INDEPENDENT WITH CARE DECLINES HCP PCP AT [facility], BUT UNABLE TO PROVIDE MORE INFORMATION DCP: HOME VIA PRIVATE TRANSPORT
--- NOTE | 2024-12-17 17:27 | P.CDIM_ITS ---
PROVIDER RESPONSE TEXT: To clarify, the appropriate diagnosis supported by the clinical indicators: Moderate persistent: with acute exacerbation QUERY TEXT: PHYSICIAN'S DOCUMENTATION REQUEST Date of Query: 12/17/2024 09:43 AM EDT Patient Name: Jv Hyatt Jr Admit Date: 12/17/2024 Dear Rasheed Mcbride MD, A review of the medical record indicates additional documentation may be needed. Please review below and update the documentation accordingly. The diagnosis of asthma was documented in the record on 12/17/24. Additional clinical indicators from the record include: Both Acute moderate persistent asthma exacerbation and Acute severe asthma exacerbation are documented Telemetry, pulse oximetry, oxygen, bronchodilator, IV steroid Based on the above, please clarify in the Progress Notes further specificity regarding the type and acuity of the asthma: Moderate persistent Please specify if with or without acute exacerbation or status asthmaticus Severe persistent Please specify if with or without acute exacerbation or status asthmaticus Other (explain) Clinically unable to determine (explain) Thank you, Sara Hermosillo RN Use of terms such as suspected, likely, concern for, or probable (associated with a specific diagnosis that is being evaluated, monitored, or treated as if it exists) are acceptable and can be coded in the inpatient setting, when documented at the time of discharge. Please use your independent medical judgment in providing your response. THIS QUERY IS PART OF THE PERMANENT MEDICAL RECORD
--- NOTE | 2024-12-17 23:23 | PC.NURSE ---
2245: pt requesting breathing treatment. Respiratory notified.
[2024-12-18] MEDS: guaiFEN/Codeine SF 200/20/10ML 10 ML LIQUID PO (01:14)
[2024-12-18 04:00] VITALS: BP 126/59; PULSE 93; RESP 18; TEMP 36.8; O2SAT 90
[2024-12-18 07:11] VITALS: BP 124/60; PULSE 90; RESP 18; TEMP 36.8; O2SAT 93
[2024-12-18] MEDS: 0.9 % Sodium Chloride Flush 3 ML SYRINGE IVFLUSH (09:54)
[2024-12-18] MEDS: Lactated Ringers 1,000 ML 100 ML IVCONT (09:55)
[2024-12-18 13:28] LABS: Alanine Aminotransferase 50 U/L (0-40); Albumin Level 5.0 g/dL (3.5-5.0); Alkaline Phosphatase 71 U/L (39-117); Anion Gap 13 (12-20); Aspartate Amino Transferase 47 U/L (5-37); Blood Urea Nitrogen 16 mg/dL (9-16); Calcium 9.8 mg/dL (8.4-10.2); Carbon Dioxide 29 mmol/L (22-29); Chloride 102 mmol/L (96-108); Creatinine Clr Calc Pharmacy 120.1; Estimated Glomerular Filt Rate > 60; Potassium 4.7 mmol/L (3.3-5.1); Sodium 139 mmol/L (135-145); Total Protein 7.9 g/dL (6.5-8.0)
--- NOTE | 2024-12-18 13:57 | PM.DS ---
DS: Providers Provider Date of Service: 12/18/24 Date of admission: 12/17/24 02:02 Date of discharge: 12/18/24 Primary care physician: Unknown Physician Attending physician on discharge: Winsome Burt Discharging clinician: Winsome Burt DS: Diagnosis Discharge Diagnosis (1) Asthma with acute exacerbation: Status: Acute DS: Summary Hospital Course Hospital Course: HPI: 24 years old man with past medical history significant for asthma on rescue inhaler only presents to the ED for the 2nd time complaining of worsening shortness on breath, wheezing, chest tightness and dry cough. 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 Patient stated that over the last couple of weeks he has been using his inhaler daily which he attributes to the weather change. He denied fever or chills. He did not report headache, palpitations or dizziness. He did not report any acute gastrointestinal or genitourinary symptoms. He denied tobacco or marijuana smoking or vaping. In the ED, he was found to have stable vital signs. There is mild tachycardia. There is no fever. CBC is unremarkable. There are no electrolyte imbalances and renal function is normal. AST is 103 and ALT is 52. Bilirubin and alk-phos are normal. Troponin < 2.7. CXR is negative. ECG showed normal sinus rhythm with sinus arrhythmia and no ischemic changes. Viral testing for COVID-19 and influenza are negative. ED tx: Solu-Medrol 60 mg IV, magnesium 2 mg IV, albuterol 2.5 mg/ipratropium 3 mg Hospital course: Patient was initially admitted for Asthma exacerbation seems to improved with nebs, steroids, cough syrup. Also found to have rhabdomyolysis. Rhabdomyolysis likely due to excessive exercises: Improved significantly with the IV fluid, CPK improving from 4291-7316 range. Encouraged for hydration. LFT mildly elevated in the setting of rhabdomyolysis-monitor LFTs outpatient. Hepatitis serologies nonreactive. Above management discussed with the patient and his mother at bedside in detail length they both understand and in agreement with the above plan, time spent 45 minute, all questions answered. Time Attestation Total time managing care of this patient today: 45 mintues. Discharge Coordination Time (in mins): 45 minute Quality: Safe Use of Opioids Does Pt have an Active Cancer Diagnosis on the Problem List?: No Quality: Stroke Does the patient have a stroke diagnosis?: No Physical Exam Exam: Exam: Appearance: Alert.? Oriented X3. cvs: rrr, [id number] . res: clear to auscultation ,no rhonchii or wheezing abd: no rebound or guarding ,nt, bs present. ext pulses present , no cyanosis . neuro: axo3 , nonfocal. Vital Signs: Vital Signs: Last Vital Signs Temp 98.3 F 12/18/24 07:11 Pulse 90 12/18/24 07:11 Resp 18 12/18/24 07:11 BP 124/60 12/18/24 07:11 Pulse Ox 93 12/18/24 07:11 O2 Del Method Room Air 12/18/24 07:11 O2 Flow Rate 2 12/17/24 08:24 BMI result Body Mass Index 27.9 DS: Data Data Completed and Pending Labs on day of discharge: Laboratory Results - last 24 hr 12/18/24 12:46 Sodium 139 Potassium 4.7 D Chloride 102 Carbon Dioxide 29 Anion Gap 13 BUN 16 Creatinine 1.06 Estim Creat Clear Calc 120.1 Estimated GFR > 60 Random Glucose 103 Calcium 9.8 Total Bilirubin 0.6 AST 47 H ALT 50 H Alkaline Phosphatase 71 Total Creatine Kinase 1262 H Total Protein 7.9 Albumin 5.0 Imaging Chest x-ray: My impression: Chest x-ray: No acute findings Discharge Plan Discharge Anticipated Discharge Date/Time: 12/18/24 13:51 Patient Disposition: Home, Self-Care Discharge Diagnosis: asthma excerebation , rhabdomyolysis , mild LFT elevation Referrals: Physician,Unknown J [Primary Care Provider, Medical] - 1 Week Discharge Medications: New codeine-guaifenesin 10-100 mg/5 mL Liquid 10 ml PO Q4H PRN (Reason: Cough) Qty: 120 0RF prednisone 20 mg Tablet 40 mg PO DAILY Qty: 8 0RF Continued cetirizine [Zyrtec] 10 mg Tablet 10 mg PO DAILY PRN (Reason: Allergies) albuterol sulfate [Ventolin HFA] 90 mcg/actuation HFA aerosol inhaler 1 inh inhalation QID PRN (Reason: shortness of breath or wheezing) Qty: 6.7 0RF Discharge Orders: Discharge Order (Routine); Ordered 12/18/24 Ordered By: Winsome Burt Diet: Advance to usual diet Activity on Discharge: As tolerated Stand Alone Forms: Patient Portal Discharge page, Work/School Release Print Language: Grenadian Care Plan Goals: Asthma exacerbation seems to improved with nebs, steroids, cough syrup. Rhabdomyolysis likely due to excessive exercises: Improved significantly with the IV fluid, monitor CPK outpatient. Encouraged for hydration. LFT mildly elevated in the setting of rhabdomyolysis-monitor LFTs outpatient. Hepatitis serologies pending. Health Concerns: As above. Plan of Treatment: As above. Assessment: As above. Discharge Date/Time: 12/18/24 16:10
--- NOTE | 2024-12-18 14:05 | MHC.CM.PN ---
pt dcd home self care
[2024-12-18 14:20] VITALS: PULSE 90; RESP 18; O2SAT 96
[2024-12-18] MEDS: Albuterol/Iprat 2.5/0.5MG 3 ML AMPUL.NEB INHALE (14:20)
[2024-12-18 14:45] LABS: Cannabinoid Screen Urine Not Detected (Not Detect)
[2024-12-18 15:42] VITALS: BP 121/64; PULSE 87; RESP 16; TEMP 37; O2SAT 95
[2024-12-19 04:41] LABS: HBS Num1 2.68 mIU/mL (0-7.99); HBc Num1 0.10 S/CO (0.00-0.79); HBsAGNum1 0.36 S/CO (0.00-0.99); Hepatitis A Antibody IgM 0.20 Index (0-0.79); Hepatitis B Surface Antigen Negative (Negative); ~HepC Num1 0.12 S/CO (0.00-0.79); ~Hepatitis A Antibody IgM Nonreactive (Nonreactive); ~Hepatitis B Surface Antibody NONREACTIVE (Nonreactive); ~Hepatitis C Antibody Nonreactive (Nonreactive)
== END 2024-12-18 16:10 | disposition home or self-care (01) | DRG 202 ==
LOC: HO.ED 23:58 → HO.EDOVER 12-17 02:17 → HO.S3 12-17 17:12
PROVIDERS: Physician Assistant Medical; Admitting Provider Internal Medicine; Emergency Provider Emergency Medicine; Visit Provider Internal Medicine
DX: J45.41 Moderate persistent asthma with (acute) exacerbation (principal); M62.82 Rhabdomyolysis; Z20.822 Contact with and (suspected) exposure to COVID-19; Z79.899 Other long term (current) drug therapy
CPT/HCPCS: 36415; 80053; 80307; 82550; 82977; 83735; 84484; 85025; 85379; 86704; 86706; 86709; 86803; 87340; 87502; 87635; 93005; 94640; 99285; J1650; J2919; J3475; J7120

== ENCOUNTER → 2024-12-16 23:40 | Outpatient (BNV) | payer OTHER, SELFPAY | PROVIDERS: Admitting Provider Internal Medicine; Emergency Provider Emergency Medicine; Visit Provider Internal Medicine | DX: R06.02 Shortness of breath (principal) | CPT/HCPCS: 93010 ==

== ENCOUNTER → 2024-12-17 02:02 | Outpatient (BNV) | payer OTHER, SELFPAY | PROVIDERS: Admitting Provider Internal Medicine; Emergency Provider Emergency Medicine; Visit Provider Internal Medicine | DX: J45.51 Severe persistent asthma with (acute) exacerbation (principal); R74.01 Elevation of levels of liver transaminase levels | CPT/HCPCS: 99223; 99239; 99499 ==